=== PATIENT | female | born 1935 | race Caucasian/White ===

== ENCOUNTER 2017-08-30 10:32 | Emergency (ER) | payer MEDICARE ==
[~2017-08-30 10:32] MED LIST: CENTTAB9 PO; FISH1000 PO; SYNT25TA PO
[2017-08-30 11:25] VITALS: BP 180/55; PULSE 59; RESP 14; TEMP 97.5
[2017-08-30] MEDS ORDERED: SYNT25TA PO (12:27)
[2017-08-30] MEDS ORDERED: CENTCHW4 CHEW (12:27)
--- NOTE | 2017-08-30 12:42 | PD ---
HPI Chief Complaint: Eye Problems/Injury Time Seen by Provider: 12:24 Travel History International Travel<30 days: No Contact w/Intl Traveler<30days: No Traveled to known affect area: No History of Present Illness HPI This is an 82-year-old female who presents for evaluation of chronic bilateral periorbital itching and redness of the skin. Symptoms started one year ago. She reports that she has seen her [id number] who is an wireless sales consultant and reportedly is felt to not be an ocular issue. She has been using topical antihistamine drops with no improvement in her symptoms. She denies using any creams or makeup on her face. Symptoms are mild, aggravated by itching, no alleviating factors. She has no other complaints at this time. [facility] Past Medical History Thyroid Disease: Yes ?: Not : 6 Para: 6 Past Surgical History Oral Surgery: Yes (TEETH REMOVAL FOR DENTURES.) Pacemaker: No Tonsillectomy: Yes Social History Alcohol Use: No Tobacco Use: No Substance Use: No Allergies-Medications (Allergen,Severity, Reaction): Coded Allergies: No Known Allergies (Unverified , 09/24/14) Reported Meds & Prescriptions Reported Meds & Active Scripts Active Reported Centrum (Multiple Vitamins W/ Minerals) 1 Chew 1 Tab CHEW DAILY Synthroid (Levothyroxine Sodium) 25 Mcg Tab 25 Mcg PO DAILY Review of Systems General / Constitutional: No: Fever, Chills Eyes: No: Pain, Tearing Skin: Positive Itching Physical Exam Narrative GENERAL: Well-developed well-nourished female in no acute distress SKIN: Warm and dry. Bilateral periorbital skin redness. HEAD: Atraumatic. Normocephalic. EYES: Pupils equal and round. No scleral icterus. No injection or drainage. ENT: No nasal bleeding or discharge. Mucous membranes pink and moist. NECK: Trachea midline. No JVD. CARDIOVASCULAR: Regular rate and rhythm. No murmur appreciated. RESPIRATORY: No accessory muscle use. Clear to auscultation. Breath sounds equal bilaterally. Data Data Last Documented VS Vital Signs Date Time Temp Pulse Resp B/P (MAP) Pulse Ox O2 Delivery O2 Flow Rate FiO2 08/30/17 11:25 97.5 59 14 180/55 (96) Orders Orders Ed Discharge Order (08/30/17 12:33) Diphenhydramine Inj (Benadryl Inj) (08/30/17 12:45) Prednisone (Deltasone) (08/30/17 12:45) MDM Medical Decision Making Medical Screen Exam Complete: Yes Emergency Medical Condition: Yes Medical Record Reviewed: Yes Differential Diagnosis Allergic contact dermatitis, irritant contact dermatitis, allergic rhinitis, bilateral periorbital cellulitis Narrative Course The patient presents with chronic bilateral periorbital itching and redness of the skin for one year of unknown etiology. The plan is to have the patient follow up with a supervisor decorating for further evaluation and treatment of this chronic issue. She will be given a dose of prednisone and Benadryl here in the ED. Diagnosis Primary Impression: Periorbital dermatitis Referrals: Safe Deposit Clerk Additional Instructions: Benadryl as needed for itching. Do not drive or drink alcohol when taking this medication. Avoid scratching. Follow-up with a supervisor decorating. Return for any emergent medical conditions. Med/Other Pt SpecificInfo: No Change to Meds Disposition: 01 DISCHARGE HOME Condition: Stable Afshin Barcenas Aug 30, 2017 12:42
[2017-08-30] MEDS ORDERED: diphenhydrAMINE HCL 50 MG/ML VIAL IM ONE (12:45)
[2017-08-30] MEDS ORDERED: predniSONE 50 MG TAB PO ONE (12:45)
== END 2017-08-30 13:24 | disposition home or self-care (01) ==
LOC: NEPK 10:32
DX: L30.8 Other specified dermatitis (principal)
CPT/HCPCS: 96372; 99283; J1200; J7512